=== PATIENT | female | born 1990 | race Caucasian/White ===

== ENCOUNTER 2017-04-15 22:06 | Observation (INO) | payer OTHER ==
[2017-04-15] MEDS ORDERED: ONDANSETRON HCL IV 4 MG/2 ML VIAL IVP ONE ×2 (22:15→23:44)
[2017-04-15] MEDS ORDERED: HYOSCYAMINE SULFATE ODT 0.125 MG TAB.SUBL SL ONE (22:15)
[2017-04-15] MEDS ORDERED: 0.9 % SODIUM CHLORIDE 1000ML 1,000 ML IV SCH (22:15)
--- NOTE | 2017-04-15 22:20 | Emergency Department Record ---
History of Present Illness - General Chief Complaint: Abdominal Pain Stated Complaint: ABDOMINAL PAIN Time Seen by Provider: 04/15/17 22:09 Source: Patient Mode of Arrival: Ambulatory Limitations: No limitations - History of Present Illness Initial Comments: 27 yo female presents to ED with a CC of nausea, vomiting, and loose stools that began approximately 2 hours prior to arrival. Patient denies fevers, chills, or recent illness. Patient denies previous abdominal surgeries other than laparoscopies for her endometriosis. Patient does report a history of endometriosis. Patient denies urinary symptoms or hematuria. MD Complaint: Abdominal pain Onset/Timin -: Hour(s) Location: Diffuse Radiation: None Migration to: No migration Severity: Moderate Quality: Cramping Consistency: Constant Improves With: Nothing Worsens With: Nothing Associated Symptoms: Denies other symptoms - Related Data Home Medications Medication Instructions Recorded Confirmed Last Taken Duloxetine HCl [Cymbalta] 20 mg PO QHS 04/15/17 04/15/17 04/14/17 Allergies Allergy/AdvReac Type Severity Reaction Status Date / Time No Known Drug Allergies Allergy Verified 04/15/17 22:43 Review of Systems Constitutional: Denies: Chills, Fever, Malaise, Night sweats Eyes: Denies: Eye discharge, Eye pain ENT: Denies: Congestion, Ear pain, Epistaxis Respiratory: Denies: Cough, Dyspnea Cardiovascular: Denies: Chest pain, Dyspnea on exertion Endocrine: Denies: Fatigue, Heat or cold intolerance Gastrointestinal: Reports: Abdominal pain, Diarrhea, Nausea, Vomiting Genitourinary: Denies: Incontinence, Retention Musculoskeletal: Denies: Arthralgia, Back pain, Gout, Joint swelling Skin: Denies: Bruising, Change in color Neurological: Denies: Abnormal gait, Confusion, Headache Psychiatric: Denies: Anxiety Hematological/Lymphatic: Denies: Anemia, Blood Clots Physical Exam - General General Appearance: Alert, Oriented x3, Cooperative, Moderate distress Limitations: No limitations - Head Head exam: Atraumatic, Normocephalic, Normal inspection Head exam detail: negative: Abrasion, Contusion, Butcher's sign, General tenderness, Hematoma, Laceration - Eye Eye exam: Normal appearance. negative: Conjunctival injection, Periorbital swelling, Periorbital tenderness, Scleral icterus - ENT Ear exam: negative: Auricular hematoma, Auricular trauma Nasal Exam: negative: Active bleeding, Discharge, Dried blood, Foreign body Mouth exam: negative: Drooling, Laceration, Muffled voice, Tongue elevation - Neck Neck exam: Normal inspection. negative: Meningismus, Tenderness - Respiratory Respiratory exam: Normal lung sounds bilaterally. negative: Respiratory distress, Rhonchi, Stridor, Wheezes - Cardiovascular Cardiovascular Exam: Regular rate, Normal rhythm, Normal heart sounds - GI/Abdominal GI/Abdominal exam: Soft, Tenderness (Mild, diffuse TTP, no rebound or guarding present). negative: Organomegaly, Pulsatile mass, Rebound, Rigid - Rectal Rectal exam: Deferred - exam: Deferred - Extremities Extremities exam: Normal inspection. negative: Calf tenderness, Pedal edema, Tenderness - Back Back exam: Denies: CVA tenderness (R), CVA tenderness (L) - Neurological Neurological exam: Alert, Normal gait, Oriented X3 - Psychiatric Psychiatric exam: Normal affect, Normal mood - Skin Skin exam: Normal color. negative: Abrasion Type of lesion: negative: abrasion Course - Reevaluation(s) Reevaluation #1: 04/15/17 22:42 Labs reviewed, WBC 13.9, labs are otherwise grossly unremarkable for an acute process. Reevaluation #2: 04/15/17 23:44 CT Abdomen and Pelvis: Multiple loops of bowel with associated thickening present, nonspecific. Simple uni-locular ovarian cysts. Patient was updated on all results, will initiate treatment with Cipro and Flagyl and admit for further evaluation. Reevaluation #3: 04/16/17 06:43 Case was discussed with Nadya Serrano, will accept admission. Medical Decision Making - Lab Data Result diagrams: 04/15/17 22:20 04/15/17 22:20 Disposition Disposition: Admit Clinical Impression: Colitis Disposition: Still a Patient at [facility] Decision to Admit: Admit from ER Decision to Admit Date: 04/16/17 Decision to Admit Time: 00:30 Condition: (2) Stable
[2017-04-15 22:26] LABS: BASO % 0.1 % (0-6); EOS % 0.6 % (0-6); HEMOGLOBIN 13.7 gm/dl (11.6-16.0); LYMPH % 4.4 % (16-45); MEAN CORPUSCULAR HEMOGLOBIN 27.1 pg (27-33); MEAN CORPUSCULAR HGB CONC 33.4 g/dl (32-36); MEAN PLATELET VOLUME 10.6 fl (7.4-10.4); MONO % 3.7 % (0-9); PLATELET COUNT 238 K/uL (130-400); RED BLOOD COUNT 5.06 M/uL (3.80-5.40); RED CELL DISTRIBUTION WIDTH 13.9 % (11.5-14.5); WHITE BLOOD COUNT W/O DIFF 13.9 K/uL (4.2-12.2)
[2017-04-15 22:37] LABS: ALB/GLOB RATIO 1.6 (1.1-1.8); ALBUMIN 4.6 gm/dL (3.5-5.0); ALKALINE PHOSPHATASE 86 U/L (38-126); ALT/SGPT 38 U/L (9-52); ANION GAP 10.9 (7-16); AST/SGOT 26 U/L (14-36); BILIRUBIN,TOTAL 0.77 mg/dL (0.2-1.3); BLOOD UREA NITROGEN 17 mg/dL (7-17); CARBON DIOXIDE 20.1 mmol/L (22-30); CREATININE 0.6 mg/dL (0.52-1.04); EST GLOMERULAR FILTRATION RATE > 60 ml/min; GLUCOSE,RANDOM 123 mg/dL (70-110); LIPASE 85 U/L (23-300); TOTAL PROTEIN 7.5 gm/dL (6.3-8.2)
[2017-04-15 23:13] LABS: URINE APPEARANCE CLEAR; URINE BILIRUBIN NEGATIVE (NEGATIVE); URINE BLOOD NEGATIVE (NEGATIVE); URINE COLOR YELLOW; URINE GLUCOSE (UA) NEGATIVE (NEGATIVE); URINE KETONE 40 mg/dL (NEGATIVE); URINE LEUKOCYTE ESTERASE NEGATIVE (NEGATIVE); URINE NITRITE NEGATIVE (NEGATIVE); URINE PROTEIN TRACE (NEGATIVE); URINE UROBILINOGEN 0.2 E.U./dL (0.20 - 1.00)
[2017-04-15] MEDS ORDERED: MORPHINE SULFATE 5 MG/ML PFS IVP ONE (23:39)
[2017-04-15] MEDS ORDERED: CIPROFLOXACIN LACTATE/D5W 400 MG/200 ML BAG IVPB ONE (23:51)
[2017-04-15] MEDS ORDERED: METRONIDAZOLE IVPB 500 MG/100 ML BAG IVPB ONE (23:51)
[2017-04-16] MEDS ORDERED: HYDROMORPHONE HCL 1 MG/ML CPJ IVP ONE (00:14)
[2017-04-16 00:25] LABS: HCG,QUALITATIVE URINE NEGATIVE (NEGATIVE)
[2017-04-16] MEDS ORDERED: PROMETHAZINE HCL 25 MG/ML VIAL IVP ONE (01:06)
[2017-04-16] MEDS ORDERED: 0.9 % SODIUM CHLORIDE 1000ML 1,000 ML IV PRN (01:25)
[2017-04-16] MEDS ORDERED: ONDANSETRON HCL IV 4 MG/2 ML VIAL IVP PRN (01:25)
[2017-04-16] MEDS ORDERED: MORPHINE SULFATE 5 MG/ML PFS IVP PRN (01:25)
[2017-04-16] MEDS ORDERED: CIPROFLOXACIN LACTATE/D5W 400 MG/200 ML BAG IVPB SCH (02:00)
[2017-04-16] MEDS ORDERED: METRONIDAZOLE IVPB 500 MG/100 ML BAG IVPB SCH (04:00)
--- NOTE | 2017-04-16 07:34 | History & Physical ---
History of Present Illness - Date of Service Date of Service for History & Physical: 04/16/17 - History of Present Illness Admitting Diagnosis: Colitis History of Present Illness: 27yo female with CC of N/V/D with abdominal pain. She has history of endometriosis and depression. Has had several laparoscopies 2/2 endometriosis. Patient presented to the ED with 2 hour history of sudden onset of nausea with vomiting. She also began having loose stools and diffuse abdominal pain. She came to the ED due to the severity of the abdominal pain. While in the ED, patient had CBC which showed WBC elevated at 13.9. she was afebrile. UA showed ketones but was negative for infectious process. CMP showed low bicarb at 20.[address] of the abdomen and pelvis showed several loops of small bowel with wall thickening consistent with gastroenteritis. She was started on IV cipro and flagyl and admitted for colitis. 04/16/17- Patient says she is feeling much better today. Has not had any nausea or vomiting since last night. tolerated her clear liquid diet for breakfast. ate 100%. She has not had any further diarrhea. states she always has some mild pelvic pain due to her endometriosis. The diffuse abdominal pain she was having has resolved. She has been traveling recently for vacation. was visiting a friend whose son was sick with the stomach bug. She denies fevers, chills, urinary pain/frequency, heartburn, cramping. PCP: in [place] Travel Screening - Travel/Exposure Within Last 30 Days Have you traveled within the last 30 days?: No Location Detail:: from [place] - Travel/Exposure Within Last Year Have you traveled outside the [place] in the last year?: No - Additonal Travel Details Have you been exposed to anyone with a communicable illness?: No - Travel Symptoms Symptom Screening: Fatigue, Diarrhea, Vomiting, Stomach Pain, Lack of Appetite Review of Systems Constitutional: Denies: Chills, Fever, Malaise, Night sweats Eyes: Denies: Eye discharge, Eye pain ENT: Denies: Congestion, Ear pain, Epistaxis Respiratory: Denies: Cough, Dyspnea Cardiovascular: Denies: Chest pain, Dyspnea on exertion Endocrine: Denies: Fatigue, Heat or cold intolerance Gastrointestinal: Denies: Abdominal pain, Diarrhea, Nausea, Vomiting Genitourinary: Denies: Incontinence, Retention Musculoskeletal: Denies: Arthralgia, Back pain, Gout, Joint swelling Skin: Denies: Bruising, Change in color Neurological: Denies: Abnormal gait, Confusion, Headache Psychiatric: Denies: Anxiety Hematological/Lymphatic: Denies: Anemia, Blood Clots Past Medical History - SOCIAL HISTORY Smoking Status: Never smoker Alcohol Use: None Drug Use Detail:: Marijuana - RESPIRATORY Hx Respiratory Disorders: No - CARDIOVASCULAR Hx Cardio Disorders: No - NEURO Hx Neuro Disorders: No - GI Hx GI Disorders: No - Hx Genitourinary Disorders: No - ENDOCRINE Hx Endocrine Disorders: No - MUSCULOSKELETAL Hx Musculoskeletal Disorders: No - PSYCH Hx Psych Problems: Yes Hx Depression: Yes - HEMATOLOGY/ONCOLOGY Hx Hematology/Oncology Disorders: No Family Medical History Any Significant Family History?: No Family Hx Comment (NOT TO BE USED IN PLACE OF ITEMS BELOW): denies Hx Cancer: Father, Brother/Sister H&P Meds/Allergies - Allergies Allergies: Allergies Allergy/AdvReac Type Severity Reaction Status Date / Time No Known Drug Allergies Allergy Verified 04/15/17 22:43 - Home Medications Home Medications Medication Instructions Recorded Confirmed Last Taken Duloxetine HCl [Cymbalta] 20 mg PO QHS 04/15/17 04/15/17 04/14/17 - Active Medications Active Medications: Current Medications Sodium Chloride () 1,000 mls @ 125 mls/hr IV .Q8H PRN PRN Reason: LARGE VOLUME IV Last Admin: 04/16/17 04:43 Dose: 125 mls/hr Ciprofloxacin Lactate (Cipro) 400 mg in 200 mls @ 200 mls/hr IVPB Q12H ANDREW Stop: 04/21/17 02:01 Last Infusion: 04/16/17 03:15 Dose: Infused Metronidazole/Sodium Chloride (Flagyl) 500 mg in 100 mls @ 100 mls/hr IVPB Q8H ANDREW Stop: 04/21/17 04:01 Last Infusion: 04/16/17 04:15 Dose: Infused Morphine Sulfate (Morphine Sulfate) 5 mg IVP Q4HR PRN PRN Reason: Abdominal Pain Stop: 04/23/17 01:26 Non-Formulary Medication (Duloxetine Hcl [Cymbalta]) 20 mg PO QHS ANDREW Ondansetron HCl (Zofran) 4 mg IVP Q4H PRN PRN Reason: NAUSEA Physical Exam - Vital Signs Vital Signs: Vital Signs - Last 24 Hrs Temp Pulse Pulse Resp BP BP Pulse Ox 04/16/17 01:25 98.0 F 76 16 115/67 99 04/16/17 01:22 75 20 108/59 98 - General General Appearance: Alert, Oriented x3, Cooperative, Moderate distress Limitations: No limitations - Head Head exam: Atraumatic, Normocephalic, Normal inspection Head exam detail: negative: Abrasion, Contusion, Butcher's sign, General tenderness, Hematoma, Laceration - Eye Eye exam: Normal appearance. negative: Conjunctival injection, Periorbital swelling, Periorbital tenderness, Scleral icterus - ENT Ear exam: negative: Auricular hematoma, Auricular trauma Nasal Exam: negative: Active bleeding, Discharge, Dried blood, Foreign body Mouth exam: negative: Drooling, Laceration, Muffled voice, Tongue elevation - Neck Neck exam: Normal inspection. negative: Meningismus, Tenderness - Respiratory Respiratory exam: Normal lung sounds bilaterally. negative: Respiratory distress, Rhonchi, Stridor, Wheezes - Cardiovascular Cardiovascular Exam: Regular rate, Normal rhythm, Normal heart sounds - GI/Abdominal GI/Abdominal exam: Soft, Normal bowel sounds. negative: Organomegaly, Pulsatile mass, Rebound, Rigid, Tenderness - Rectal Rectal exam: Deferred - exam: Deferred - Extremities Extremities exam: Normal inspection. negative: Calf tenderness, Pedal edema, Tenderness - Back Back exam: Denies: CVA tenderness (R), CVA tenderness (L) - Neurological Neurological exam: Alert, Normal gait, Oriented X3 - Psychiatric Psychiatric exam: Normal affect, Normal mood - Skin Skin exam: Normal color. negative: Abrasion Type of lesion: negative: abrasion Results - Labs Result Diagrams: 04/15/17 22:20 04/15/17 22:20 - Imaging and Cardiology CT scan - abdomen Status: Report reviewed (multiple loops of small bowel wtih wall thickening possibly related to gastroenteritis) VTE H&P Assessment - Risk for VTE Risk for VTE: Yes Risk Level: Very Low Risk Assessment Date: 04/16/17 Risk Assessment Time: 11:33 VTE Orders Placed or Will Be Placed: Yes Plan - Detailed Diagnosis and Plan (1) Gastroenteritis Current Visit: Yes Status: Acute Base Code: K52.9 - NONINFECTIVE GASTROENTERITIS AND COLITIS, UNSPECIFIED Comment: 04/16/17- signficant improvement. CT abdomen showed multiple loops of small bowel with wall thickening likely related to gastroenteritis. Clinically, patient has had complete resolution of her symptoms which included N/V and loose stool. I do feel it is likely that she has viral gastroenteritis with quick onset and resolution of symptoms along with CT findings. WBC count was slightly elevated at 13.9. UA negative for infection. patient is afebrile and without abdominal pain. -will order repeat labs -discontinue antibiotics as this is likley viral gastroenteritis -advance diet as tolerating -vitals q8H (2) Full code status Current Visit: Yes Status: Acute Base Code: Z78.9 - OTHER SPECIFIED HEALTH STATUS Comment: 04/16/17- patient is full code (3) DVT prophylaxis Current Visit: Yes Status: Acute Base Code: [id number] - Comment: 04/16/17- Patient is low risk wtih age and restricted mobility -will add SCD's while in bed
[2017-04-16 12:29] LABS: HEMATOCRIT 35.9 % (35.0-47.0); HEMOGLOBIN 11.6 gm/dl (11.6-16.0); MEAN CELL VOLUME 83.9 fl (81-97); MEAN CORPUSCULAR HEMOGLOBIN 27.1 pg (27-33); MEAN CORPUSCULAR HGB CONC 32.3 g/dl (32-36); MEAN PLATELET VOLUME 10.7 fl (7.4-10.4); PLATELET COUNT 181 K/uL (130-400); RED BLOOD COUNT 4.28 M/uL (3.80-5.40); RED CELL DISTRIBUTION WIDTH 13.9 % (11.5-14.5); WHITE BLOOD COUNT W/O DIFF 7.4 K/uL (4.2-12.2)
[2017-04-16 12:42] LABS: ALB/GLOB RATIO 1.5 (1.1-1.8); ALBUMIN 3.5 gm/dL (3.5-5.0); ALKALINE PHOSPHATASE 59 U/L (38-126); ALT/SGPT 34 U/L (9-52); ANION GAP 9.5 (7-16); AST/SGOT 21 U/L (14-36); BILIRUBIN,TOTAL 0.94 mg/dL (0.2-1.3); BLOOD UREA NITROGEN 9 mg/dL (7-17); CARBON DIOXIDE 23.5 mmol/L (22-30); CREATININE 0.6 mg/dL (0.52-1.04); EST GLOMERULAR FILTRATION RATE > 60 ml/min; GLUCOSE,RANDOM 81 mg/dL (70-110); TOTAL PROTEIN 5.9 gm/dL (6.3-8.2)
[2017-04-16 12:50] LABS: PLATELET ESTIMATE NORMAL (NORMAL)
--- NOTE | 2017-04-16 13:05 | Discharge Summary ---
Providers Discharge Summary Date: 04/16/17 Date of admission: 04/16/17 01:18 Expected Date of Discharge: 04/16/17 Attending physician: OLYA BLANTON Physical Exam - Vital Signs Vital Signs: Vital Signs - Last 24 Hrs Temp Pulse Pulse Resp BP BP Pulse Ox 04/16/17 10:50 99.4 F 111/56 04/16/17 09:25 99.4 F 78 16 111/56 99 04/16/17 01:25 98.0 F 76 16 115/67 99 04/16/17 01:22 75 20 108/59 98 - General General Appearance: Alert, Oriented x3, Cooperative, Moderate distress Limitations: No limitations - Head Head exam: Atraumatic, Normocephalic, Normal inspection Head exam detail: negative: Abrasion, Contusion, Butcher's sign, General tenderness, Hematoma, Laceration - Eye Eye exam: Normal appearance. negative: Conjunctival injection, Periorbital swelling, Periorbital tenderness, Scleral icterus - ENT Ear exam: negative: Auricular hematoma, Auricular trauma Nasal Exam: negative: Active bleeding, Discharge, Dried blood, Foreign body Mouth exam: negative: Drooling, Laceration, Muffled voice, Tongue elevation - Neck Neck exam: Normal inspection. negative: Meningismus, Tenderness - Respiratory Respiratory exam: Normal lung sounds bilaterally. negative: Respiratory distress, Rhonchi, Stridor, Wheezes - Cardiovascular Cardiovascular Exam: Regular rate, Normal rhythm, Normal heart sounds - GI/Abdominal GI/Abdominal exam: Soft, Normal bowel sounds. negative: Organomegaly, Pulsatile mass, Rebound, Rigid, Tenderness - Rectal Rectal exam: Deferred - exam: Deferred - Extremities Extremities exam: Normal inspection. negative: Calf tenderness, Pedal edema, Tenderness - Back Back exam: Denies: CVA tenderness (R), CVA tenderness (L) - Neurological Neurological exam: Alert, Normal gait, Oriented X3 - Psychiatric Psychiatric exam: Normal affect, Normal mood - Skin Skin exam: Normal color. negative: Abrasion Type of lesion: negative: abrasion Hospitalization - Hospitalization Admission Diagnosis: Colitis - Problem List/Discharge Diagnosis (1) Gastroenteritis Status: Acute Base Code: K52.9 - NONINFECTIVE GASTROENTERITIS AND COLITIS, UNSPECIFIED Comment: 04/16/17- signficant improvement. CT abdomen showed multiple loops of small bowel with wall thickening likely related to gastroenteritis. Clinically, patient has had complete resolution of her symptoms which included N/V and loose stool. I do feel it is likely that she has viral gastroenteritis with quick onset and resolution of symptoms along with CT findings. WBC count was slightly elevated at 13.9 down to 7.4. UA negative for infection. patient is afebrile and without abdominal pain. -will plan to discharge home today. She is going to follow up wtih her pcp in [facility]. She received a disk from radiology to take. -discontinue antibiotics as this is likley viral gastroenteritis -advance diet as tolerating -return to Ed for any new or worsening concerns (2) Full code status Status: Acute Base Code: Z78.9 - OTHER SPECIFIED HEALTH STATUS Comment: 04/16- patient is full code (3) DVT prophylaxis Status: Acute Base Code: [id number] - Comment: 04/16/17- Patient is low risk wtih age and restricted mobility -will add SCD's while in bed - Hospitalization Course Disposition: Home, Self-Care Abnormal Labs: Abnormal Lab Results 04/16/17 04/16/17 Range/Units 12:17 12:17 MPV 10.7 H (7.4-10.4) fl Neutrophils % 91.0 H (47-80) % Lymphocytes 6.0 L (16-45) % Calcium 8.0 L (8.5-10.1) mg/dL Total Protein 5.9 L (6.3-8.2) gm/dL Condition at Discharge: (2) Stable Discharge Medications - Discharge Medications Home Medications: Ambulatory Orders Duloxetine HCl [Cymbalta] 20 mg PO QHS 04/15/17 [Last Taken 04/14/17] Discharge Plan - Discharge Instructions Activity at Discharge: Resume Usual Activities As Tolerated Diet at Discharge: Advance to Usual Diet Instructions: Gastroenteritis (GEN), Acute Nausea and Vomiting (GEN) Additional Instructions: Please make follow up appointment with PCP within next 7-10 days continue to advance your diet as tolerating Please call with any questions Return to ED for any new/worsening symptoms
--- NOTE | 2017-04-16 16:18 | CT SCAN REPORT ---
EXAM: CT SCAN ABDOMEN/PELVIS W CONTRAST HISTORY: EPIGASTRIC PAIN. TECHNIQUE: Sequential axial images were obtained from the diaphragms through the ischiorectal fossa after intravenous administration of 100 mL of Omnipaque- 300 contrast material. Sagittal and coronal reformatted images were performed. FINDINGS: Visualized lung bases appear normal. The liver appears homogeneous. The gallbladder, pancreas, and spleen appear normal. The adrenal glands and kidneys appear normal. There are multiple loops of small bowel that demonstrate wall thickening. Findings may be related to gastroenteritis or inflammatory bowel disease. The appendix is visualized and appears normal. The colon appears normal. The uterus appears normal. There are bilateral ovarian cysts. The osseous structures are normal. IMPRESSION: 1. SEVERAL LOOPS OF SMALL BOWEL DEMONSTRATING WALL THICKENING. FINDINGS MAY BE RELATED TO GASTROENTERITIS VS. INFLAMMATORY BOWEL DISEASE. 2. BENIGN-APPEARING CYSTS IN BOTH OVARIES. JOB NUMBER: [id number] MTDD
[2017-04-16] MEDS ORDERED: DULOXETINE HCL 20 MG PO SCH (22:00)
== END 2017-04-16 13:44 | disposition home or self-care (01) ==
LOC: ER 22:06 → MEDSURG 04-16 01:18
PROVIDERS: ADMIT Family Medicine; ATTEND Family Medicine
DX: A08.39 Other viral enteritis (principal); R11.2 Nausea with vomiting, unspecified
CPT/HCPCS: 74177; 80053; 81003; 81025; 83690; 85027; 96361; 96374; 96375; 96376; 99235; 99285; J1170; J2405; J2550; J7030